=== PATIENT | female | born 1985 | race Caucasian/White ===

== ENCOUNTER 2017-05-04 07:33 | Emergency (ER) | payer MEDICAID ==
[2017-05-04 07:43] VITALS: BP 113/47
--- NOTE | 2017-05-04 08:13 | ERNOTE ---
Date of Service: 05/04/17 Time Seen by Provider: 05/04/17 07:57 Stated Complaint: URI Presenting Symptoms:: cough Source: patient Exam Limitations: no limitations Immunizations: IMMUNIZATION HX Immunizations Up to Date Yes History of Influenza Vaccine Yes Allergies/Adverse Reactions: Allergies No Known Drug Allergies Allergy (Verified 05/04/17 07:43) Home Medications: HOME MEDICATIONS Albuterol Sulfate [Proair Hfa] 2 puff IH Q4H PRN #1 inhaler 05/04/17 [Last Taken Unknown] Amox Tr/Potassium Clavulanate [Augmentin 875-125 Tablet] 875 mg PO Q12H #20 tab 05/04/17 [Last Taken Unknown] HYDROcodone/ACETAMINOPHEN [[place] 5-325] 1 tab PO Q8H PRN #12 tab 05/04/17 [Last Taken Unknown] - History of Present Ilness Narrative: Patient presents to the ED with cough. She relates she has been feeling sick for 3-4 days with cough. She has had foul tasting mucous produced with this. She has felt chills and like she has a fever. She has had left chest pain with cough. No SOB. Ribs hurt on naomi left with movement and cough. no calf pain or leg swelling. No true SOB. Has not seen anyone else for this. Nasal congestion also. Timing: constant Severity: moderate Frequency/Possible Cause: Reports: no prior episodes Modifying Factors - Improves: Reports: nothing Modifying Factors - Worsens: Reports: other - palpation of ribs and movement Associated Symptoms: Reports: cough, nasal congestion, fever/chills. Denies: sore throat Prior Treatment: Denies: recently seen Review of Systems - Review of Systems Constitutional: Absent: fever ENT: Present: nose congestion Respiratory: Present: cough Cardiology: Present: See HPI Gastrointestinal/Abdominal: Absent: abdominal pain Skin: Absent: rash Neurological: Absent: weakness - Patient's Past Medical History Patient History - Medical: No pertinent hx Patient History - Cardiac/Respiratory: No pertinent hx Patient History - Cancer: No Hx of Cancer Patient History - Surgical Procedures: Other Patient History - Other: None - Family History Mother Family History - Medical: No pertinent hx Father Family History - Medical: No pertinent hx - Social History Living Situations: home Abuse History: No History of abuse Psych History: No pertinent hx Alcohol Use: rarely Drug Use: none - Immunizations Immunizations Up to Date: Yes History of Influenza Vaccine: Yes Physical Exam - Physical Exam General Appearance: Present: alert, no apparent distress, other - Watching TV, no distress, speaking in full sentences. Eye Exam: Normal inspection: bilateral, PERRL: bilateral Ears, Nose, Throat: Present: other - nasal congestion with come mucous drainage down the back of the throat. Neck: Present: normal inspection Respiratory: Present: no respiratory distress, other - There is some localized wheezing left base that is persistent. Left low rib tendenress completely reproduces her rib pain with palpation. Cardiovascular/Chest: Present: regular rate, rhythm, normal peripheral pulses Gastrointestinal/Abdominal: Present: normal bowel sounds, nontender, nondistended Back Exam: Present: normal range of motion Extremity Exam: Present: other - No DVT findings, no calf tendenress Neurological Exam: Present: alert, normal mood/affect, no motor/sensory deficits Skin Exam: Absent: skin rash ED Progress - Vital Signs Patient's Vital Signs:: I have reviewed the patient's vital signs. Vital Signs: Vital Signs 05/04/17 07:39 Temperature 35.9 C L Pulse Rate 71 Respiratory 12 Rate Blood Pressure 113/47 O2 Sat by Pulse 96 Oximetry - Progress/Reassessment Chief Complaint: Upper Respiratory Symptoms Progress Note-Subjective: 05/04/17 08:07 I offered a full w/u with x-rays and labs/ekg but she declines this. She wishes to be treated. She understands risks and benefits but declines testing. Given the localized wheezes will treat with ABx and inhaler and pain meds for the rib pain. She understands she can return at any time if she changes her mind about having the testing done. Nothing at this point would suggest PE, ACS , aortic dissection or CHF. Departure - Departure Clinical Impression: Cough Disposition: Home self-care Condition: Stable Instructions: Cough, Adult, [id number] Additional Instructions: Rest. Fluids. Antibiotics as directed. No driving with pain medications. Follow-up within 3 days for a re-check with your primary doctor. Return if you change your mind about having the testing we discussed, develop trouble breathing or if your condition worsens or changes in any way. Prescriptions: Albuterol Sulfate [Proair Hfa] 2 puff IH Q4H PRN #1 inhaler PRN Reason: Shortness Of Breath Amox Tr/Potassium Clavulanate [Augmentin 875-125 Tablet] 875 mg PO Q12H #20 tab HYDROcodone/ACETAMINOPHEN [[place] 5-325] 1 tab PO Q8H PRN #12 tab PRN Reason: Pain
== END 2017-05-04 08:25 | disposition home or self-care (01) ==
LOC: ER 07:33
DX: R05 Cough (principal)